=== PATIENT | male | born 1965 | race Hispanic/Latino ===

== ENCOUNTER 2018-03-29 02:50 | Emergency (ER) | payer OTHER ==
[~2018-03-29 02:50] MED LIST: ALEVE220 M1 PO; ATORVASTATIN CA10 M1; CYCLOBENZAPRINE10 M1 PO; ENDOCET 325 MG-1 TA1 PO; FLEXERIL10 MG PO; GABAPENTIN400 M2; IBUPROFEN800 M1 PO; KETOROLAC TROME10 M1 PO; METFORMIN HCL500 M3 PO; MOBIC15 MG PO; MOBIC7.5 M1 PO; MOTRIN800 MG PO; NEURONTIN300 M1 PO; PERCOCET 325 MG1 TA2 PO; PERCOCET 325 MG1 TAB PO; PERCOCET 5-3251 EACH PO; PROAIR HFA0.09 MG/Ac INH; TESSALON PERLE100 MG PO; TRAMADOL50 MG PO; ULTRAM(MONOGRAP50 MG PO; VENTOLIN HFA18 GM INH; ZITHROMAX Z-PA250 M1 PO
--- NOTE | 2018-03-29 02:57 | ED UPPER/LOWER EXTREMITY COMPL ---
History of Present Illness General Chief Complaint: Shoulder Injury Stated Complaint: RT SIDE SHOULDER PAIN NO KNOWN INJURY Source: patient Exam Limitations: no limitations Vital Signs & Intake/Output Vital Signs & Intake/Output Vital Signs Date Time Temp Pulse Resp B/P B/P Pulse O2 O2 Flow FiO2 Mean Ox Delivery Rate 03/29 0311 97.0 81 18 125/84 96 Room Air 03/29 0305 100 Room Air Allergies Coded Allergies: No Known Allergies (03/29/18) Reconcile Medications Atorvastatin Calcium (Unknown Strength) TABLET (Unknown Dose) UNKNOWN ( Reported) Cyclobenzaprine HCl 10 MG TABLET 1 TAB PO Q8P PAIN OR SPASM Metformin HCl 500 MG TABLET 1 TAB PO BID DIABETES (Reported) Oxycodone HCl/Acetaminophen (Percocet 5-325 MG Tablet) 5 MG-325 MG TABLET 1 TAB PO 4XDP PRN PAIN FOUR...[id number] Triage Nurses Notes Reviewed? yes Onset: Gradual Duration: day(s): Timing: recent history Severity: moderate Pain/Injury Location: Right: Shoulder. Method of Injury: "wear and tear" Modifying Factors: Improves With: rest. Worsens With: movement. Associated Symptoms: right shoulder pain x many months, worse x 3-4 days HPI: 52 yo gentleman h/o right rotator cuff disease x many months, presents with 3-4 days of right shoulder pain. 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 I am working all the time.... I lift... I climb... I work hard.... Tonight, the pain was so bad that I couldn't sleep." He notes that he had an MRI some months ago, but hasn't yet followed up with a plan for next steps. He notes no new trauma. No fever, chills, dyspnea, chest pain, shortness of breath. He is otherwise well. Past History Travel History Traveled to [place] past 21 day No Medical History Any Pertinent Medical History? 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 No Review of Systems Review of Systems Constitutional: Reports: no symptoms. EENTM: Reports: no symptoms. Respiratory: Reports: no symptoms. Cardiovascular: Reports: no symptoms. Gastrointestinal/Abdominal: Reports: no symptoms. Genitourinary: Reports: no symptoms. Musculoskeletal: Reports: no symptoms. Skin: Reports: no symptoms. Neurological/Psychological: Reports: no symptoms. Hematologic/Endocrine: Reports: no symptoms. Immunological: Reports: no symptoms. All Other Systems: Reviewed and Negative Physical Exam Physical Exam General Appearance: well developed/nourished, mild distress Head: atraumatic, normal appearance Eyes: Bilateral: normal appearance. Ears, Nose, Throat: normal pharynx, normal ENT inspection Neck: normal inspection, supple, full range of motion Cardiovascular/Respiratory: normal breath sounds, normal peripheral pulses, regular rate/rhythm Back: normal inspection Shoulder Right: limited range of motion, limited ROM due to discomfort. pain elicited with rotator cuff maneuvers and palpation of musculature. 2+distal pulse, no muscle wasting. Progress Differential Diagnosis: rotator cuff arthropaty - tendonitis, labial tear, sprain vs other. Plan of Care: Orders Procedure Date/time Status Durable Medical Equipment 03/29 313 Active Diagnostic Imaging: Viewed by Me: Radiology Read. Discussed w/RAD: Radiology Read. Radiology Impression: PATIENT: DUNCAN COTTO III PRESENT AGE: 52 PATIENT ACCOUNT NO: [id number] : 63 LOCATION: [facility] ORDERING PHYSICIAN: Bayron JIMENEZ SERVICE DATE: 06/16/17 EXAM TYPE: RAD - XRY-SHOULDER COMPLETE-RIGHT EXAMINATION: XR SHOULDER, RIGHT CLINICAL INFORMATION: Pain. COMPARISON: None TECHNIQUE: Three views of the right shoulder. FINDINGS: No acute fracture or dislocation is seen. The glenohumeral articulation is maintained. There is mild degenerative spurring of the distal clavicular head at the AC joint. No discrete soft tissue abnormality is seen. The visualized portion of the right lung is clear. IMPRESSION: No acute radiographic abnormality of the right shoulder. Mild degenerative changes of the acromioclavicular joint. DICTATED BY: STEPHANIE BERMAN MD DATE/TIME DICTATED:2018 [facility] UPHOLST[employer] PARTS:CHRISS DATE/TIME TRANSCRIBED:06/16/172018 CONFIDENTIAL, DO NOT COPY WITHOUT APPROPRIATE AUTHORIZATION. <Electronically signed in Other Vendor System> SIGNED BY: STEPHANIE BERMAN MD 06/16/172022 Departure Departure Disposition: HOME OR SELF CARE Condition: Stable Clinical Impression Primary Impression: Rotator cuff arthropathy Referrals: Unknown (PCP/Family) Departure Forms: Customer Survey General Discharge Information Prescriptions: Current Visit Scripts Oxycodone HCl/Acetaminophen (Percocet 5-325 MG Tablet) 1 TAB PO 4XDP PRN PAIN #4 TAB FOUR...[id number] Comments given rx for supportive medications.... pt referred to ortho and pmd.
[2018-03-29] MEDS ORDERED: PERCOCET 5-3251 EACH PO ×2 (03:03→03:05)
[2018-03-29 03:11] VITALS: BP 125/84
== END 2018-03-29 03:18 ==
LOC: ERH 02:50
DX: M12.9 Arthropathy, unspecified (principal); M25.511 Pain in right shoulder; E11.9 Type 2 diabetes mellitus without complications; Z79.84 Long term (current) use of oral hypoglycemic drugs